=== PATIENT | female | born 2000 | race Two or more races ===

== ENCOUNTER 2024-12-07 02:23 | Emergency (ER) | payer OTHER, MEDICAID, SELFPAY ==
[2024-12-07 02:28] VITALS: BMI 34.0
[2024-12-07 02:37] VITALS: BP 106/70; PULSE 80; RESP 18; TEMP 36.7; O2SAT 99
--- NOTE | 2024-12-07 02:51 | XR_ITS ---
Examination: CT abdomen and pelvis without contrast. Coronal 3-D reconstructions. Sagittal 2-D reconstructions. Date and time of exam:December 07, 2024 0330 hours INDICATIONS: Right-sided flank pain onset today CTDI: vol (mGy): 9.42 DLP: (mGycm): 523 Technique: Axial images of the abdomen have been obtained, 3 mm slice thickness Intravenous contrast material has not been administered. Low dose protocols were performed. One or more of the following dose reduction techniques were used; automated exposure control, adjustment of the mA and/or KV according to patient size, use of iterative reconstruction technique. Findings: Fatty infiltration throughout the liver No gallstones Spleen not enlarged No pancreatic mass No renal or ureteral calculi, no hydronephrosis Aorta normal size 8 mm fat-containing umbilical hernia The distal appendix, coronal image 100, is fluid-filled and thickened up to 8 mm, but no definite periappendiceal inflammatory change The appendix is retrocecal No pericecal inflammatory changes No bowel obstruction Bilateral intact IMPRESSION: The distal appendix is fluid-filled and thickened up to 8 mm, but no periappendiceal inflammatory change, the appearance should be clinically correlated
--- NOTE | 2024-12-07 02:52 | XR_ITS ---
Examination: Abdomen sonogram, Limited Date and time of exam: December 07, 2024 0303 hours INDICATIONS: Right upper abdominal pain with nausea and vomiting beginning 2 hours ago Technique: Real-time inman scale transabdominal sonographic images of the upper abdomen obtained. Findings: Multiple gallstones Common bile duct 0.4 cm Pancreatic head 2.4 cm Liver 13.6 cm fatty infiltration Normal hepatopedal portal venous flow Patent IVC IMPRESSION: Cholelithiasis, negative for cholecystitis
[2024-12-07 03:08] LABS: Collection Type, Urine Clean Catch
[2024-12-07 03:17] LABS: Bilirubin,Urine Negative (Negative); Blood,Urine Negative (Negative); Clarity,Urine Clear (Clear/Hazy); Color,Urine Yellow (Lt Yel-Yel); Culture Indicated,Urine Not Indicated; Glucose, Urine Negative (Negative); HCG Qualitative,Urine Negative; Ketones,Urine 1+ (Negative); Leukocyte Esterase,Urine Negative (Negative); Nitrite,Urine Negative (Negative); PH,Urine 7.5 (5.0-7.0); Protein,Urine Trace (Neg - Trace); RBC,Urine 3 /hpf (0-3); Specific Gravity,Urine 1.032 (1.001-1.035); Squamous Epithelial Cell,Urine 1 /hpf (0-5); Urobilinogen,Urine Negative mg/dL (0.0-1.0); WBC,Urine 2 /hpf (0-5)
--- NOTE | 2024-12-07 03:18 | EDNOTE_ITS ---
ED Abdominal Pain RME/HPI General Chief Complaint: Nausea/Vomiting/Diarrhea Stated complaint: NV Time seen by provider: 12/07/24 02:51 Arrival date/time: 12/07/24 02:23 24F with history of gallstones presents to ED with 1 day of R-side ab/flank pain and N/V. Patient denies hematuria/dysuria, vaginal bleeding, and diarrhea. Limitations: no limitations Related Data Home Medications ?Medication ?Instructions ?Recorded ?Confirmed prenat.vits,qiana,[id number] 1 tab PO QDAY 05/13/22 05/13/22 Previous Rx's ?Medication ?Instructions ?Recorded ondansetron HCl 4 mg tablet 4 mg PO QDAY #7 tabs 07/19 ibuprofen 800 mg tablet 800 mg PO TID PRN pain #30 t abs 12/07/24 metoclopramide HCl 10 mg tablet 10 mg PO Q6H PRN nause a and 12/07/24 (Reglan) vomiting #30 tabs Allergies Allergy/AdvReac Type Severity Reaction Status Date / Time No Known Allergies AdvReac Unknown Uncoded 12/07/24 02:32 Review of Systems Review of Systems Systems Reviewed: All systems reviewed, normal except as documented Constitutional Constitutional: Reports system reviewed and no additional complaints, except as documented, Denies fever(s) and Denies headache(s) ENT Ears, Nose, Mouth, and Throat: Denies disequilibrium and Denies headache(s) Cardiovascular Cardiovascular: Reports system reviewed and no additional complaints, except as documented, Denies chest pain and Denies dyspnea Respiratory Respiratory: Reports system reviewed and no additional complaints, except as documented, Denies cough and Denies dyspnea Gastrointestinal Gastrointestinal: Reports system reviewed and no additional complaints, except as documented, Reports as per HPI, Reports abdominal pain, Reports nausea and Reports vomiting Genitourinary Genitourinary: Reports as per HPI and Reports flank pain Neurologic Neurologic: Reports system reviewed and no additional complaints, except as documented, Denies confusion, Denies disequilibrium and Denies headache(s) Psychiatric Psychiatric: Denies confusion Past Medical History Past Medical History CARDIAC: Negative Congestive Heart Failure RESPIRATORY: Negative Chronic Obstructive Pulmonary Disease (COPD) GENITOURINARY: Negative Renal Disease ENDOCRINE: Negative Diabetes Mellitus Type 1 or Diabetes Mellitus Type 2 Social History SMOKING STATUS: Never smoker ED Exam General Limitations: Present no limitations General appearance: Present alert and in no apparent distress Head Head exam: Present atraumatic Eye Eye exam: Present normal appearance, PERRL and EOMI ENT ENT exam: Present normal exam, normal oropharynx and mucous membranes moist Neck Neck exam: Present normal inspection, full ROM and trachea midline Chest Chest inspection: Present normal inspection and symmetric chest wall rise Respiratory Respiratory exam: Present normal lung sounds bilaterally Cardiovascular Cardiovascular exam: Present regular rate, normal rhythm and normal heart sounds Abdominal Exam Abdominal exam: Present soft and normal bowel sounds Abdominal tenderness: Present RUQ, RLQ and mild Extremities Exam Extremities exam: Present normal inspection and full ROM Back Exam Back exam: Present full ROM and CVA tenderness (R) (mild) Neurological Exam Neurological exam: Present alert, oriented X3 and CN II-XII intact Psychiatric Psychiatric exam: Present normal affect and normal mood Skin Skin exam: Present warm, dry, intact and normal color Course Quality Measures none Orders Category Date Time Status Bedside COVID-19 Antigen Test NOW Care 12/07/24 05:30 Completed Bedside Influenza A&B Antigen Test NOW Care 12/07/24 05:45 Completed COVID-19 Screening Questionnaire NOW Care 12/07/24 05:29 Completed COVID-19 Screening Questionnaire NOW Care 12/07/24 05:52 Completed Manufacturing Cost Estimator Q4H START 00 Care 12/07/24 04:51 Completed Manufacturing Cost Estimator Q4H START 00 Care 12/07/24 06:30 Completed Decision to Admit X1 Care 12/07/24 05:52 Completed Insert IV NOW Care 12/07/24 04:21 Completed NPO NOW Care 12/07/24 04:21 Completed Consult to General Surgery Stat Cons 12/07/24 04:22 Ordered Diet NPO (NOW) Diet 12/07/24 04:[address] abdomen pelvis wo con Stat Exams 12/07/24 02:51 Completed US gall bladder Stat Exams 12/07/24 02:52 Completed Alcohol, Blood Medical Stat Lab 12/07/24 03:15 Completed CBC Stat Lab 12/07/24 03:15 Completed CMP [Comprehensive Metabolic Panel] Stat Lab 12/07/24 03:15 Completed Drug Screen,Urine Stat Lab 12/07/24 02:58 Completed HCG Qualitative,Urine Stat Lab 12/07/24 02:58 Completed Lipase Stat Lab 12/07/24 03:15 Completed Urinalysis, C/S if Indicated Stat Lab 12/07/24 02:58 Completed Acetaminophen Ivpb [Ofirmev Inj] Med 12/07/24 08:00 Discontinued 1,000 mg in 100 ml IV Q6HR HYDROmorphone INJ [Dilaudid Inj] Med 12/07/24 09:21 Discontinued 1 mg IVP X1 ONE Ketorolac Inj [Toradol Inj] Med 12/07/24 02:52 Discontinued 60 mg IM X1 ONE Metoclopramide Inj [Reglan Inj] Med 12/07/24 09:21 Discontinued 10 mg IVP X1 ONE Morphine Inj Med 12/07/24 06:39 Discontinued 4 mg IVP X1 ONE Ondansetron Inj [Zofran Inj] Med 12/07/24 05:23 Discontinued 4 mg IV X1 ONE Ondansetron Odt [Zofran Odt] Med 12/07/24 02:52 Discontinued 4 mg PO X1 ONE Piper/Tazo 3.375 gm Premix [Zosyn] Med 12/07/24 04:21 Discontinued 3.375 gm in 50 ml IV X1 Sodium Chloride 0.9% 1000 ml [Ns] 1,000 ml Med 12/07/24 04:22 Discontinued IV 500 mls/hr Vital Signs Vital signs: Vital Signs Temperature 98.0 F 12/07/24 02:37 Pulse Rate 80 12/07/24 02:37 Respiratory Rate 18 12/07/24 02:37 Blood Pressure 106/70 12/07/24 02:37 Pulse Oximetry (%) 99 12/07/24 02:37 Oxygen Delivery Method Room Air 12/07/24 02:37 O2 at 99% on RA and WNLs Abdominal Pain MDM MDM Narrative MDM Narrative:: 24F with history of gallstones presents to ED with 1 day of R-side ab/flank pain and N/V. Patient denies hematuria/dysuria, vaginal bleeding, and diarrhea. Physical exam reveals mild R CVA/RUQ/RLQ tenderness. Patient is afebrile, calm, and alert. Moderate leukocytosis of 16k. CMP unremarkable. Lipase normal. UA clean. HCG neg. CT reveals early appy. US gallstones but no inflammation. Upon reassessment, no more CVA or RUQ tenderness. Still mild RLQ tenderness. Spoke to Dr. Rolle, who will evaluate patient in morning. Care transferred to colleague. Dr. Rolle came to evaluate patient. Patient ended being DC'd. Patient data External records reviewed:: [facility] previous records Clinical information provided by:: patient Social determinants that could affect healthcare access:: none Patient has the following chronic illnesses:: none How is presenting disease/condition affected by chronic disease/condition?: no chronic disease Evaluation data The following diagnostics were reviewed and interpreted by me:: lab results and radiology exam(s) Lab and/or radiology exams considered but not ordered:: ordered Interpretation Summary: above Medications / Prescriptions Medications or Prescriptions considered but not ordered:: ordered Medication administrations:: Medication Administration History Discontinued Medications Hydromorphone HCl (Hydromorphone Inj 2 Mg/Ml Vial) 1 mg IVP X1 ONE Stop: 12/07/24 09:22 Last Admin: 12/07/24 09:36 Dose: 1 mg Documented By: CECILIO Piperacillin/Tazobactam/Dextrose (Zosyn) 3.375 gm in 50 mls @ 100 mls/hr IV X1 ONE Stop: 12/07/24 04:50 Last Infusion: 12/07/24 05:13 Dose: Infused Documented By: Admin: 12/07/24 04:52 Dose: 100 mls/hr Documented By: BD Sodium Chloride (Ns) 1,000 mls @ 500 mls/hr IV .Q2H ONE Stop: 12/07/24 06:21 Last Infusion: 12/07/24 06:50 Dose: Infused Documented By: Admin: 12/07/24 04:51 Dose: 500 mls/hr Documented By: BD Acetaminophen (Ofirmev Inj) 1,000 mg in 100 mls @ 250 mls/hr IV Q6HR PIERRE Stop: 12/08/24 00:23 Last Infusion: 12/07/24 08:17 Dose: Infused Documented By: Admin: 12/07/24 07:51 Dose: 250 mls/hr Documented By: CECILIO Ketorolac Tromethamine (Ketorolac Inj 60 Mg/2 Ml Vial) 60 mg IM X1 ONE Stop: 12/07/24 02:53 Last Admin: 12/07/24 03:48 Dose: 60 mg Documented By: RODRÍGUEZ Metoclopramide HCl (Metoclopramide Inj 5 Mg/Ml Vial 2 Ml) 10 mg IVP X1 ONE; Protocol Stop: 12/07/24 09:22 Last Admin: 12/07/24 09:36 Dose: 10 mg Documented By: CECILIO Morphine Sulfate (Morphine Sulf Inj 10 Mg/Ml Vial) 4 mg IVP X1 ONE Stop: 12/07/24 06:40 Last Admin: 12/07/24 06:44 Dose: 4 mg Documented By: PERLA Ondansetron HCl (Ondansetron Odt 4 Mg Tabrap) 4 mg PO X1 ONE; Protocol Stop: 12/07/24 02:53 Last Admin: 12/07/24 03:47 Dose: 4 mg Documented By: RODRÍGUEZ Ondansetron HCl (Ondansetron Inj 2 Mg/Ml Inj 2 Ml) 4 mg IV X1 ONE; Protocol Stop: 12/07/24 05:24 Last Admin: 12/07/24 05:51 Dose: 4 mg Documented By: PERLA above Consultations Consultation(s) initiated? (list below): Yes Diagnosis Differential diagnosis abdominal pain: abdominal pain, acute appendicitis, qiana culus of kidney, constipation, diverticulitis, endometriosis, gastroenteritis, pancreatitis, small bowel obstruction and other (biliary disease, N/V) Most likely diagnosis given after review of the tests above:: ab pain, N/V, gallstones Admission Indicated Admission indicated?: not indicated Admission Request Was there a request for admission?: No Disposition Plan Disposition Plan: Discharge Discharge Attestation Discharge Attestation: The patient and all family members were given an opportunity to ask questions and understood the discharge instructions. Discharge instructions specifically effects, indications for sooner follow up or return to the emergency department, and the expected course of current diagnosis. Patient condition: Stable Discharge Plan Plan Patient Disposition: HOME (Self Care) Discharge Disposition comment: Stable Prescriptions/Referrals Prescriptions/Med Rec: New ibuprofen 800 mg tablet 800 mg PO TID PRN (Reason: pain) Qty: 30 0RF metoclopramide HCl [Reglan] 10 mg tablet 10 mg PO Q6H PRN (Reason: nausea and vomiting) Qty: 30 0RF No Action ondansetron HCl 4 mg tablet 4 mg PO QDAY Qty: 7 0RF Vitamin Tablet 1 tab PO QDAY Referrals: Zandra Oconnor PA-C [Primary Care Provider] - 12/09/24 Problem List Clinical Impression: Abdominal pain, Nausea & vomiting, Gallstones Patient/Caregiver Discharge Instructions Education Materials: Abdominal Pain Additional Instructions: Please follow up with your primary care doctor in the next 24-48hrs for any worsening symptoms return here immediately If your symptoms persist or worsen please return immediately for reevaluation Print Language: Sri Lankan Stand Alone Forms: Saray Award Info., Work/School Release, Patient Portal Info Letter PA/FOLDER OPERATOR Supervising Physician PA/FOLDER OPERATOR Supervising Physician: Dr. chisholm
[2024-12-07 03:20] LABS: Amphetamine/Methamp Scrn,U Negative (Negative); Barbiturate Screen,Urine Negative (Negative); Benzodiazepines Screen,Urine Negative (Negative); Benzoylecgonine Screen, Ur Negative (Negative); Fentanyl Screen,Urine Negative (Negative); Opiate Screen,Urine Negative (Negative); THC Screen,Urine Negative (Negative)
[2024-12-07 03:33] LABS: Basophils % (Auto) 0 % (0-2.5); Eosinophils % (Auto) 0 % (0-10); Hematocrit 40.4 % (36.0-46.0); Hemoglobin 14.5 g/dL (12.0-16.0); Immature Granulocytes % (Auto) 0 % (0-0); Immature Granulocytes Auto 0.05 Thou/mm3 (0.00-0.00); Lymphocytes # (Auto) 1.1 Thou/mm3 (1.0-4.8); Lymphocytes % (Auto) 7 % (10-50); Mean Corpuscular HGB Conc 35.9 g/dl (31.0-37.0); Mean Corpuscular Hemoglobin 28.5 pg (25.0-35.0); Mean Corpuscular Volume 80 fL (80-100); Monocytes # (Auto) 0.6 Thou/mm3 (0.0-0.8); Monocytes % (Auto) 4 % (0-12); Neutrophils # (Auto) 14.4 Thou/mm3 (1.8-7.7); Neutrophils % (Auto) 89 % (37-80); Platelet Count 234 Thou/mm3 (140-440); RDW Standard Deviation 37.4 fL (36.4-46.3); Red Blood Count 5.08 Miln/mm3 (4.00-5.20); White Blood Count 16.2 Thou/mm3 (3.6-11.0)
[2024-12-07 03:34] LABS: Nucleated Red Blood Cell % 0 /100 WBC (0)
[2024-12-07] MEDS: ONDANSETRON ODT 4 MG TABRAP PO (03:47)
[2024-12-07] MEDS: KETOROLAC INJ 60 MG/2 ML VIAL IM (03:48)
[2024-12-07 03:56] LABS: Alanine Aminotransferase 25 U/L (10-49); Albumin, Serum 4.7 gm/dL (3.5-5.0); Albumin/Globulin Ratio 1.4 (1.2-2.2); Alcohol, Blood Medical < 3.0 mg/dL (0-10.0); Alkaline Phosphatase 86 U/L (46-116); Anion Gap 10 (7-16); Aspartate Amino Transferase 23 U/L (0-34); BUN/Creatinine Ratio 15 Ratio (12-20); Bilirubin,Total 0.7 mg/dL (0.3-1.2); Blood Urea Nitrogen 12 mg/dL (9-23); Calcium 9.1 mg/dL (8.3-10.6); Calcium (Corrected) 9.1 mg/dL (8.5-10.1); Carbon Dioxide 24.7 mMol/L (20.0-31.0); Chloride 105 mMol/L (98-107); Creatinine (Component) 0.8 mg/dL (0.6-1.3); Estimated Creatinine Clearance 103.2 mL/min (>60); Globulin 3.3 gm/dL (2.3-3.5); Glucose 135 mg/dL (74-106); Lipase 35 U/L (12-53); Osmolality,Calculated 281 (275-295); Potassium 3.7 mMol/L (3.4-5.1); Sodium 140 mMol/L (136-145); eGFR > 60 See Note
--- NOTE | 2024-12-07 04:22 | PRELIM_ITS ---
CT scan of the abdomen and pelvis without intravenous contrast (axial sections with sagittal and coronal reformats) December 07, 2024 0330 hours Clinical History: Right flank pain. Comparison: Correlated with the prior ultrasound study dated September 23, 2021. Findings: The lung bases are clear. The gallbladder, pancreas, spleen, kidneys and adrenals are unremarkable on this noncontrast study. Liver steatosis. Hepatomegaly. No evidence of bowel obstruction. Thickening of the appendix measuring up to 0.8 cm without peripheral fat stranding, no perforation, no collections. There is no mesenteric or retroperitoneal adenopathy. The urinary bladder is unremarkable. There is no free fluid or free air. The osseous structures are unremarkable. The uterus and ovaries are within normal limits. Impression: Findings are suspicious for early acute appendicitis. Please, correlate clinically. No evidence of kidney or ureteral stones. Hepatomegaly associated with liver steatosis, suspicious for steatohepatitis. Discussion Details: Results verbally communicated to : Dr Gonzales at 04:06 AM 12/07/2024 Report Electronically Signed By: Dm Burrell 12/07/2024 4:21:41 AM [EST]
[2024-12-07 04:39] VITALS: BP 109/74; PULSE 94; RESP 24; TEMP 36.8; O2SAT 98
--- NOTE | 2024-12-07 04:49 | PC.NURSE ---
per shahid centeno no blood cultures needed
[2024-12-07] MEDS: SODIUM CHLORIDE 0.9% 1000 ML 1,000 ML 500 ML IV (04:51)
[2024-12-07] MEDS: PIPER/TAZO 3.375 GM PREMIX 3.375 GM/50 ML BAG IV (04:52)
--- NOTE | 2024-12-07 05:26 | PRELIM_ITS ---
Right upper quadrant abdominal ultrasound with Doppler and wave Doppler spectral analysis. December 07, 2024 at 0303 hours Clinical history: Right upper quadrant pain and Nausea and vomiting. Technique: Grayscale and color flow images of the right upper quadrant are provided. Hepatic and portal veins were also imaged with color flow images. Comparison: Compared with the prior study dated September 23, 2021. Findings: The liver demonstrates increased echogenicity. No intrahepatic biliary ductal dilatation. Gallstones. No gallbladder wall thickening or pericholecystic fluid is demonstrated. The common bile duct is normal in caliber at 3.8 mm. The pancreas is unremarkable to the extent visualized. The imaged portions of the right kidney are within normal limits. There is no hydronephrosis and the corticomedullary differentiation is maintained. The inferior vena cava is patent with normal wave Doppler spectral analysis. The portal vein is patent with hepatopetal flow with normal wave Doppler spectral analysis. The hepatic veins are patent with normal wave Doppler spectral analysis. Impression: Gallstones without evidence of acute cholecystitis. If the clinical suspicion for acute cholecystitis is still high consider correlation with HIDA scan. Liver steatosis. Report Electronically Signed By: Dm Burrell 12/07/2024 5:25:53 AM [EST]
[2024-12-07] MEDS: ONDANSETRON INJ 2 MG/ML INJ 2 ML 4 MG IV (05:51)
[2024-12-07 06:00] VITALS: BP 106/69; PULSE 84; RESP 19; TEMP 36.4; O2SAT 100
[2024-12-07] MEDS: MORPHINE SULF INJ 10 MG/ML VIAL 4 MG IVP (06:44)
[2024-12-07] MEDS: ACETAMINOPHEN IVPB 1,000 MG/100 ML VIAL 250 MG IV (07:51)
[2024-12-07 08:02] VITALS: BP 104/64; PULSE 89; RESP 16; TEMP 36.6; O2SAT 95
[2024-12-07] MEDS: METOCLOPRAMIDE INJ 5 MG/ML VIAL 2 ML 10 MG IVP (09:36)
[2024-12-07] MEDS: HYDROmorphone INJ 2 MG/ML VIAL 1 MG IVP (09:36)
--- NOTE | 2024-12-07 11:53 | PD.EDADDENDU ---
Emergency Room Addendum Addendum Narrative: 06:00 AM: I reviewed patient's labs and imaging Patient was given pain medication and medication for nausea 11:45 AM: Dr Rolle came to evaluate the patient started the patient does not have appendicitis or any other surgical issue at this time and can be discharged home I spoke with the patient gave her strict instructions to return for any worsening of symptoms patient states understanding
== END 2024-12-07 12:05 | disposition home or self-care (01) ==
PROVIDERS: Physician Assistant; Emergency Provider Emergency Medicine; PCP Physician Assistant
DX: K80.20 Calculus of gallbladder without cholecystitis without obstruction (principal)
CPT/HCPCS: 36415; 74176; 76705; 80053; 80307; 80320; 81001; 81025; 83690; 85025; 87400; 87811; 96361; 96365; 96367; 96375; 99284; J0131; J1171; J1885; J2270; J2405; J2543; J2765; J7030; Q0162; G0480

== ENCOUNTER 2025-05-22 20:59 | Emergency (ER) | payer OTHER, MEDICAID, SELFPAY ==
[2025-05-22 21:00] VITALS: BMI 34.9
[2025-05-22 21:50] VITALS: BP 130/83; PULSE 105; RESP 18; TEMP 37.3; O2SAT 97
--- NOTE | 2025-05-22 21:59 | PD.EDURI ---
Upper Respiratory Inf. RME/HPI General Chief Complaint: Flu Like Symptoms Stated Complaint: FEVER, FACIAL SWELLING Time Seen by Provider: 05/22/25 21:48 Source: patient, RN notes reviewed and old records reviewed Arrival date/time: 05/22/25 20:59 Mode of arrival: ambulatory Limitations: no limitations RME / HPI RME / HPI Narrative: 25yof presents to ED for 3-day history of congestion and cough. Reports subjective fever 1 hour podiatric physician and c/o sinus headache. No known sick contacts. No sore throat, shortness of breath, nausea/vomiting or dizziness reported. DayQuil taken at 2030 with mild relief. Related Data Home Medications ?Medication ?Instructions ?Recorded ?Confirmed prenat.vits,qiana,yhy-[id number] 1 tab PO QDAY 05/13/22 05/13/22 Previous Rx's ?Medication ?Instructions ?Recorded ondansetron HCl 4 mg tablet 4 mg PO QDAY #7 tabs 07/19/23 ibuprofen 800 mg tablet 800 mg PO TID PRN pain #30 tabs 12/07/24 metoclopramide HCl 10 mg tablet 10 mg PO Q6H PRN nausea and 12/07/24 (Reglan) vomiting #30 tabs acetaminophen 500 mg tablet 1,000 mg (2 x 500 mg) PO Q6H PRN 05/22/25 (Tylenol Extra Strength) fever or pain #30 tabs dextromethorphan-guaifenesin ER 60 1 tab PO Q12H PRN congestion/cough 05/22/25 mg-1,200 mg tab,extend #20 tabs release,12hr (Mucinex DM) fluticasone propionate 50 2 spray intranasal QDAY PRN nasal 05/22/25 mcg/actuation nasal congestion #16 grams spray,suspension (Flonase Allergy Relief) ibuprofen 600 mg tablet 600 mg PO Q6H PRN fever or pain 05/22/25 #20 tabs Allergies Allergy/AdvReac Type Severity Reaction Status Date / Time No Known Allergies Allergy Verified 05/22/25 21:00 Review of Systems Review of Systems Systems Reviewed: All systems reviewed, normal except as documented Constitutional Constitutional: Denies chills, Denies fever(s) and Reports headache(s) ENT Ears, Nose, Mouth, and Throat: Reports headache(s), Reports nasal congestion, Denies sore throat and Denies vertigo Cardiovascular Cardiovascular: Denies chest pain and Denies dyspnea Respiratory Respiratory: Denies dyspnea Gastrointestinal Gastrointestinal: Denies nausea and Denies vomiting Musculoskeletal Musculoskeletal: Reports myalgias Neurologic Neurologic: Reports headache(s) and Denies vertigo Past Medical History Past Medical History GASTROINTESTINAL: Positive Obesity Surgical History OTHER SURGICAL HX: Denies past surgical history Social History SMOKING STATUS: Never smoker SUBSTANCE USE: does not use ALCOHOL: Never ED Exam General Limitations: Present no limitations General appearance: Present alert and in no apparent distress Head Head exam: Present atraumatic and normocephalic Eye Eye exam: Present normal appearance, PERRL and EOMI ENT ENT exam: Present normal oropharynx, mucous membranes moist, TM's normal bilaterally and other (Mild UAC) Neck Neck exam: Present normal inspection and full ROM Chest Chest inspection: Present normal inspection and symmetric chest wall rise Respiratory Respiratory exam: Present normal lung sounds bilaterally and other (No wheezing rales or rhonchi); Absent respiratory distress Cardiovascular Cardiovascular exam: Present normal rhythm and tachycardia (Mild, HR 105) Extremities Exam Extremities exam: Present normal inspection and full ROM Neurological Exam Neurological exam: Present alert and oriented X3 Psychiatric Psychiatric exam: Present normal affect and normal mood Skin Skin exam: Present warm, dry, intact and normal color Course Quality Measures none Orders Category Date Time Status Bedside COVID-19 Antigen Test NOW Care 05/22/25 21:59 Completed Influenza A & B Rapid Panel Stat Lab 05/22/25 22:14 Completed Acetaminophen Tab [Tylenol ES Tab] Med 05/22/25 21:59 Discontinued 1,000 mg PO X1 ONE Ibuprofen Tab [Motrin Tab] Med 05/22/25 21:59 Discontinued 600 mg PO X1 ONE Vital Signs Vital signs: Vital Signs Temperature 99.2 F 05/22/25 21:50 Pulse Rate 105 H 05/22/25 21:50 Respiratory Rate 18 05/22/25 21:50 Blood Pressure 130/83 05/22/25 21:50 Pulse Oximetry (%) 97 05/22/25 21:50 Oxygen Delivery Method Room Air 05/22/25 21:50 Upper Respiratory Infection MDM Narrative MDM Narrative:: 25yof presents to ED for 3-day history of congestion and cough. Reports subjective fever 1 hour podiatric physician and c/o sinus headache. No known sick contacts. No sore throat, shortness of breath, nausea/vomiting or dizziness reported. DayQuil taken at 2030 with mild relief. Patient is non-toxic appearing, afebrile, vitals are stable. No evidence of respiratory distress or hypoxia. Suspect viral etiology of symptoms. Encouraged rest, fluids, symptomatic treatment, fever manage prn. Stable for discharge, RTED precautions given. Patient data External records reviewed:: [facility] previous records (12/03/2024 ED visit for abdominal pain) Clinical information provided by:: patient Social determinants that could affect healthcare access:: other (specify) (Poor access to healthcare) Patient has the following chronic illnesses:: Obesity How is presenting disease/condition affected by chronic disease/condition?: uneffected by Evaluation data The following diagnostics were reviewed and interpreted by me:: lab results Lab and/or radiology exams considered but not ordered:: CXR: Lungs clear, no respiratory distress or hypoxia Interpretation Summary: Negative covid/flu Medications / Prescriptions Medications or Prescriptions considered but not ordered:: No antibiotics recommended at this time Medication administrations:: Medication Administration History Discontinued Medications Acetaminophen (Acetaminophen 500 Mg Tablet) 1,000 mg PO X1 ONE Stop: 05/22/25 22:00 Last Admin: 05/22/25 22:15 Dose: 1,000 mg Documented By: FRANKLIN Ibuprofen (Ibuprofen Tab 600 Mg Tablet) 600 mg PO X1 ONE Stop: 05/22/25 22:00 Last Admin: 05/22/25 22:15 Dose: 600 mg Documented By: FRANKLIN Above medications administered in ED Consultations Consultation(s) initiated? (list below): No Diagnosis Upper Respiratory Differential Diagnosis: upper respiratory infection, sinusitis, viral infection, bronchitis, influenza and pharyngitis Most likely diagnosis given after review of the tests above:: URI, viral syndrome Admission Indicated Admission indicated?: not indicated Admission Request Was there a request for admission?: No Disposition Plan Disposition Plan: Discharge Discharge Attestation Discharge Attestation: The patient and all family members were given an opportunity to ask questions and understood the discharge instructions. Discharge instructions specifically effects, indications for sooner follow up or return to the emergency department, and the expected course of current diagnosis. Patient condition: Stable Discharge Plan Plan Patient Disposition: HOME (Self Care) Patient condition on transfer: Stable Prescriptions/Referrals Prescriptions/Med Rec: New ibuprofen 600 mg tablet 600 mg PO Q6H PRN (Reason: fever or pain) Qty: 20 0RF acetaminophen [Tylenol Extra Strength] 500 mg tablet 1,000 mg PO Q6H PRN (Reason: fever or pain) Qty: 30 0RF dextromethorphan-guaifenesin [Mucinex DM] 60-1,200 mg tablet extended release 12 hr 1 tab PO Q12H PRN (Reason: congestion/cough) Qty: 20 0RF fluticasone propionate [Flonase Allergy Relief] 50 mcg/actuation spray,suspension 2 spray intranasal QDAY PRN (Reason: nasal congestion) Qty: 16 0RF Rx Instructions: administer into each nostril No Action ondansetron HCl 4 mg tablet 4 mg PO QDAY Qty: 7 0RF ibuprofen 800 mg tablet 800 mg PO TID PRN (Reason: pain) Qty: 30 0RF metoclopramide HCl [Reglan] 10 mg tablet 10 mg PO Q6H PRN (Reason: nausea and vomiting) Qty: 30 0RF Vitamin Tablet 1 tab PO QDAY Referrals: Zandra Oconnor PA-C [Primary Care Provider] - In 1 week Problem List Clinical Impression: Upper respiratory infection, Viral syndrome Patient/Caregiver Discharge Instructions Education Materials: ED URI, Viral, No Abx (Adult) Print Language: Bulgarian Stand Alone Forms: Saray Award Info., Work/School Release, Patient Portal Info Letter PA/JUDIT Supervising Physician PA/ASSISTANT PRESSMAN Supervising Physician: Adolfo
[2025-05-22] MEDS: IBUPROFEN TAB 600 MG TABLET PO (22:15)
[2025-05-22] MEDS: ACETAMINOPHEN 500 MG TABLET 1000 MG PO (22:15)
[2025-05-22 22:38] LABS: Influenza A Ag Negative; Influenza B Ag Negative
== END 2025-05-22 22:59 | disposition home or self-care (01) ==
PROVIDERS: Physician Assistant; Emergency Provider Emergency Medicine; PCP Physician Assistant
DX: J06.9 Acute upper respiratory infection, unspecified (principal)
CPT/HCPCS: 87502; 87635; 99282; A9270